=== PATIENT | female | born 1975 | race Caucasian/White ===

== ENCOUNTER → 2017-06-17 19:02 | Observation (INO) ==
[2017-06-17 17:51] LABS: Basophils % 0.2 %; Eosinophils % 0.3 %; Hematocrit 37.4 % (35.3-44.9); Hemoglobin 12.5 g/dL (11.5-15.4); Immature Granulocytes % 0.3 % (0-4); Lymphocytes # 2.3 K/mcL (0.6-4.6); Lymphocytes % 23.4 %; Mean Corpuscular HGB Conc 33.4 g/dL (31.6-35.5); Mean Corpuscular Hemoglobin 31.3 pg (28.0-33.3); Mean Corpuscular Volume 93.5 fL (83.0-100.0); Mean Platelet Volume 11.3 fL (9.4-12.4); Monocytes # 0.8 K/mcL (0.0-1.3); Monocytes % 7.7 %; Neutrophils # 6.8 K/mcL (1.6-8.9); Platelet Count 185 K/mcL (140-400); Red Cell Distribution Width 13.3 % (11.5-14.5); Segmented Neutrophils % 68.1 %
[2017-06-17 17:57] LABS: Bilirubin,Urine Negative (Negative); Blood,Urine Negative (Negative); Clarity,Urine Cloudy (Clear); Color,Urine Yellow (Yellow); Glucose,Urine (UA) Normal (Normal); Ketones,Urine 15 mg/dL (Negative); Leukocyte Esterase,Urine Trace (Negative); Nitrite,Urine Negative (Negative); PH,Urine 6.5 pH Units (5.0-8.0); Protein,Urine Negative (Neg-Trace); Urobilinogen,Urine Normal (Normal)
[2017-06-17 17:59] LABS: Bacteria,Urine Few per hpf (None-Few); Hyaline Casts,Urine None Seen per lpf (None-Few); RBC,Urine 0-3 per hpf (0-3); Squamous Epithelial Cell,Urine Many per lpf (None-Few)
[2017-06-17 18:01] LABS: Amphetamine Screen,Urine Negative ng/mL (Cutoff=1000); Barbiturate Screen,Urine Negative ng/mL (Cutoff=200); Benzodiazepines Screen,Urine Negative ng/mL (Cutoff=200); Cannabinoid Screen,Urine Negative ng/mL (Cutoff = 50); Cocaine Screen,Urine Negative ng/mL (Cutoff= 300); Creatinine,Urine 35 mg/dL; Opiate Screen,Urine Negative ng/mL (Cutoff=300); Phencyclidine Screen,Urine Negative ng/mL (Cutoff=25)
[2017-06-17 18:05] LABS: Alanine Aminotransferase 9 Units/L (0-55); Aspartate Amino Transferase 14 Units/L (5-34); BUN/Creatinine Ratio 8 (6-26); Blood Urea Nitrogen 6 mg/dL (7-20); Lactate Dehydrogenase 160 Units/L (159-327); Uric Acid 4.1 mg/dL (2.6-6.0); eGFR For African Americans > 60 (> 60); eGFR For Non-African Americans > 60 (> 60)
[2017-06-17 18:07] LABS: Protein/Creatinine Ratio,Urine < 0.20 mg/mg (0-0.20)
--- NOTE | 2017-06-17 18:52 | OB/GYN Progress Note ---
Date of Encounter: 06/17/17 Time of Encounter: 18:49 - Assessment and Plan (1) 35 weeks gestation of Current Visit: Yes Status: Acute (2) Elevated blood pressure affecting in third trimester, antepartum Current Visit: Yes Status: Acute Patient with no complaints of PIH symptoms, all lab work is returned within normal limits, blood pressures have resolved last blood pressure 128/86. Pt with contractions, VE 3cm, discussed options of discharge to home or continued monitoring and L&D for 2 hours for cervical change, patient desires discharge home. Discharged to home with pre-eclampsia and labor precautions, pt verbalizes understanding. Labs reviewed with Dr. Vega. (3) NST (non-stress test) reactive Current Visit: Yes Status: Acute Baseline 135 Subjective - Subjective Interval history: 35+5 weeks gestation. Sent to triage following office visit with elevated blood pressures.. Patient reports good movement and denies contractions, vaginal bleeding, or leaking of fluid. Patient also denies headache right upper quadrant pain or visual changes. Patient has been seen in this by maternal medicine, for AMA and placental infarct in previous Antepartum ROS: movement normal, no loss of fluid, no vaginal bleeding, no contractions Objective - Exam FHR: auscultation normal FHR comments: Baseline 135 Auscultation: bilateral: normal Abdomen: Present: normal appearance, soft, gravid Uterus: Present: normal Cervical dilation: 3/50/-3 - Labs Labs: Abnormal lab results BUN 6 mg/dL (7-20) L 06/17/17 17:35 Urine Clarity Cloudy (Clear) A 06/17/17 17:35 Urine Ketones 15 mg/dL (Negative) H 06/17/17 17:35 Ur Leukocyte Esterase Trace (Negative) H 06/17/17 17:35 Urine Microscopic WBC 3-5 per hpf (0-3) H 06/17/17 17:35 Ur Squamous Epith Cells Many per lpf (None-Few) H 06/17/17 17:35 Ur Culture Indicated? YES (NO) A 06/17/17 17:35
== END | disposition home or self-care (01) ==
LOC: 1NENULAB
PROVIDERS: ADMIT Obstetrics & Gynecology; ATTEND Obstetrics & Gynecology

== ENCOUNTER 2017-07-01 11:54 | Inpatient (IN) ==
[2017-07-01 12:29] LABS: Basophils % 0.2 %; Eosinophils % 0.3 %; Hemoglobin 13.3 g/dL (11.5-15.4); Immature Granulocytes % 0.3 % (0-4); Immature Platelets 8.7 % (1.1-6.1); Lymphocytes # 2.1 K/mcL (0.6-4.6); Lymphocytes % 23.8 %; Mean Corpuscular HGB Conc 33.3 g/dL (31.6-35.5); Mean Corpuscular Hemoglobin 30.8 pg (28.0-33.3); Mean Corpuscular Volume 92.6 fL (83.0-100.0); Mean Platelet Volume 11.2 fL (9.4-12.4); Monocytes # 0.6 K/mcL (0.0-1.3); Monocytes % 7.4 %; Neutrophils # 5.9 K/mcL (1.6-8.9); Platelet Count 191 K/mcL (140-400); Red Blood Count 4.32 M/mcL (3.82-4.97); Red Cell Distribution Width 13.2 % (11.5-14.5)
[2017-07-01 12:42] LABS: Alanine Aminotransferase 10 Units/L (0-55); Aspartate Amino Transferase 13 Units/L (5-34); BUN/Creatinine Ratio 8 (6-26); Blood Urea Nitrogen 6 mg/dL (7-20); Lactate Dehydrogenase 185 Units/L (159-327); Uric Acid 4.7 mg/dL (2.6-6.0); eGFR For African Americans > 60 (> 60); eGFR For Non-African Americans > 60 (> 60)
[2017-07-01 13:12] LABS: Creatinine,Urine 37 mg/dL; Protein/Creatinine Ratio,Urine < 0.19 mg/mg (0-0.20)
[2017-07-01] MEDS ORDERED: Famotidine 20 MG/2 ML VIAL IVP PRN (13:17)
[2017-07-01] MEDS ORDERED: Naloxone 0.4 MG/ML INJ IVP PRN (13:17)
[2017-07-01] MEDS ORDERED: Ondansetron 4 MG/2 ML VIAL IVP PRN (13:17)
[2017-07-01] MEDS ORDERED: miSOPROStol 25 MCG TABLET PO PRN (13:21)
[2017-07-01 13:44] LABS: Amphetamine Screen,Urine Negative ng/mL (Cutoff=1000); Barbiturate Screen,Urine Negative ng/mL (Cutoff=200); Benzodiazepines Screen,Urine Negative ng/mL (Cutoff=200); Cannabinoid Screen,Urine Negative ng/mL (Cutoff = 50); Cocaine Screen,Urine Negative ng/mL (Cutoff= 300); Opiate Screen,Urine Negative ng/mL (Cutoff=300); Phencyclidine Screen,Urine Negative ng/mL (Cutoff=25)
--- NOTE | 2017-07-01 14:13 | OB/GYN History & Physical ---
Date of Encounter: 07/01/17 Time of Encounter: 14:11 Assessment and Plan (1) 37 weeks gestation of Current visit: Yes Status: Acute (2) Gestational hypertension w/o significant proteinuria in 3rd trimester Current visit: Yes Status: Acute Admit to labor and delivery or gestational hypertension with continued elevated diastolics greater than 90 Induction of labor with Cytotec Nubain and epidural as desired GBS negative Anticipate Plan of care discussed with Dr. High (3) AMA (advanced maternal age) multigravida 35+ Current visit: Yes Status: Acute Qualifiers: Trimester: third trimester Qualified Code(s): O09.523 - Supervision of elderly multigravida, third trimester (4) MTHFR deficiency complicating Current visit: Yes Status: Acute Pt on ASA during last dose yesterday Qualifiers: Trimester: third trimester Qualified Code(s): O99.283 - Endocrine, nutritional and metabolic diseases complicating , third trimester; E72.12 - Methylenetetrahydrofolate reductase deficiency (5) GDM, class A1 Current visit: Yes Status: Acute History of Present Illness Chief complaint: elevated BP HPI: Ms. Pitts is a 42 year old female at 37+5 weeks gestation presents to labor and delivery triage from office for evaluation of elevated blood pressures patient. Patient reports good movement, denies vaginal bleeding , contractions, leaking fluid, visual changes, right upper quadrant pain, or headache. complicated with advanced maternal age, gestational diabetes A1, elevated blood pressures in , MTHFR deficiency. Labs: O+, rubella and varicella immune, GBS negative, all other serologies negative Past Med Surg Social Fam HX - Past Medical History Source: patient Medical history: other Psychiatric history: no psych history - Past Surgical History Surgical History: no surgical history - Social History Smoking Status: Former smoker Smokeless Tobacco Status: No Alcohol use: none Drug use: none - Family History Father Adopted: [place]: Goldy Barksdale Living Status: Still Living Hx Family Cardiac Disorders: Yes (OK, arrthymia, cardiac ablation) Hx Family Respiratory Disorders: No Hx Family Cancer: No Hx Family GI Disorders: No Hx Family Genitourinary Disorders: No Hx Family Endocrine Disorder: No Hx Family Musculoskeletal Disorders: No Hx Family Neuromuscular Disorders: No Hx Family Neurologic Disorders: No Hx Family HEENT Disorders: No Hx Family Autoimmune Disorders: No Hx Family Reproductive Disorders: No Hx Family Psychosocial Disorders: No Hx Family Medical Disorders: No Obstetrical History - Pregnancies : 2 Para: 1 Term: 1 : 0 Ab's: 0 Livin Medications and Allergies Aspirin 81 mg PO 07/01/17 [History] Claritin 07/01/17 [History] Flonase 07/01/17 [History] Formula Tablet 07/01/17 [History] 3 Allergy/AdvReac Type Severity Reaction Status Date / Time No Known Allergies Allergy Verified 06/17/17 17:31 Exam - Constitutional Constitutional: well developed, well nourished, no acute distress, average body habitus - Neck Neck exam: full ROM - Lungs Respiratory exam: CTAB - Cardiovascular Cardiovascular exam: RRR - Abdomen Abdomen: Present: bowel sounds normal, gravid, non tender - Extremities Extremities exam: normal capillary refill, normal inspection - Vagina Vagina: Present: normal moisture - Cervix Dilation: 3 (Per Lennox ) Effacement: 80 - Uterus Uterus exam: Present: normal size, normal contour Results Result Diagrams: 07/01/17 12:15 07/01/17 12:15 Abnormal lab results Immature Plt Fraction 8.7 % (1.1-6.1) H 07/01/17 12:15 BUN 6 mg/dL (7-20) L 07/01/17 12:15 All other labs normal. - VTE Reasons for not Prescribing Prophylaxis: Treatment not Indicated - Low risk for VTE
--- NOTE | 2017-07-01 14:52 | Anesthesia Evaluation PreOp ---
Date of Encounter: 07/01/17 Time of Encounter: 14:50 - Past History Planned Operation: kameron Cardiac History: HTN (pih) Pulmonary History: Denies Any Significant HX SENIOR ELECTRONICS ENGINEER History: Denies Any Significant HX Other Medical History: Denies Any Significant HX, Diabetes Type II (gestational) , Other (mthfr) Anesthesia History: No Prior Anesthetic Complications, Past Anesthesia : Yes (, 37 plus 5) Alcohol Use: none Drug use: none Medications and Allergies Aspirin 81 mg PO 07/01/17 [History] Claritin 07/01/17 [History] Flonase 07/01/17 [History] Formula Tablet 07/01/17 [History] 3 Allergy/AdvReac Type Severity Reaction Status Date / Time No Known Allergies Allergy Verified 06/17/17 17:31 - Meds/Allergy Pre-op Review Medications Reviewed: Yes Allergies Reviewed: Yes Beta Blockers on Current Med List: No Anesthesia Results - Labs 07/01/17 12:15 07/01/17 12:15 Anesthesia Exam O2 Sat Height 1.63 m Height 1.63 m Weight 91 kg Weight 91 kg bp 143/92 Height: 64 Weight: 91 - HEENT Pupil (Motor): Pupils equal Mallampati: II Teeth: Prosthesis (#8,9 implants) Oral Opening: Greater than 3 - SENIOR ELECTRONICS ENGINEER LOC: Oriented SENIOR ELECTRONICS ENGINEER Motor: Normal RUE, Normal LUE, Normal RLE, Normal LLE, Normal Face SENIOR ELECTRONICS ENGINEER Sensory: Normal: RUE, LUE, RLE, LLE, Face - Cardiac Rhythm: Regular Murmur: None JVD: No Carotid Bruit: No - Pulmonary Breath Sounds: bilateral Clear Respiratory Effort: Symmetrical Anesthesia Assess/Plan ASA Score: 2 Modified Yandy Scale for Level of Consciousness: Cooperative, oriented, and tranquil Anesthetic Plan: Regional Monitoring Plan: Standard Monitors
[2017-07-01] MEDS ORDERED: Oxytocin 20 units/ LR 1000 mL 20 UNIT/1,000 ML BAG IVC SCH (19:30)
--- NOTE | 2017-07-01 19:39 | OB Labor Progress Note ---
Date of Encounter: 07/01/17 Time of Encounter: 19:32 Labor Progress Note - Subjective Subjective: Pt states she is feeling contractions, they are slowly getting stronger - Vital Signs Vital Signs: Last bp 134/87 - Cervix Cervix: 4/80/-2 per GIO Knowles - Heart Tones Heart Tones: 120/moderate/+accels/-decels - [place]: 2-5 - Plan Plan: Start pitocin per policy Nubain and Epidural as desired Anticipate
[2017-07-01] MEDS ORDERED: Ringers Solution, Lactated 1,000 ML ONE ×2 (20:00→20:58)
[2017-07-01] MEDS ORDERED: Epidural Premix (fent/bupiv) 110 ML EP ONE (20:15)
[2017-07-01] MEDS ORDERED: *HR* FentaNYL (PF) 100 MCG/2 ML VIAL ONE (20:27)
[2017-07-01] MEDS ORDERED: *HR* Ropivacaine/PF 0.2% 10 ML AMPUL ONE (20:28)
--- NOTE | 2017-07-01 20:55 | Anesthesia Procedures ---
Date of Encounter: 07/01/17 Time of Encounter: 20:53 Procedures: Anesthesia - Epidural/Spinal Patient ID/Chart reviewed: Yes Patient examined: Yes OB Eval: Gestational age: 37 OB Eval: : 2 OB Eval: Hx Para: 1 OB Eval: Dilated at (cm): 4 OB Eval: Contractions: Non-stressed pattern Consent Obtained: Yes Supplemental Oxygen: None/Room Air Site Prep: Aseptic Technique Patient position: upright Local Anesthetic: Lidocaine 1% Amount of Local Anesthetic used: 3 Touhy Needle Gauge: 18 Touhy Needle Depth (cm): 5 Catheter Depth at Skin (cm): 12 Test Dose (1.5% Lido + Epi): Volume given (mls): 3 Test Dose Result: Negative Loading Dose: Fentanyl (mcg): 10 Loading Dose: Other: 0.2% ropivicaine 6ml Loading Dose Administered: Thru Touhy Needle Infusion Med: 0.125% Bupivacaine w/ 2 mcg/ml Fentanyl Infusion Rate (mls/hr): [address]: Tegaderm Interspace Used: L3-L4 Loss of Resistance (THEO): Yes Blood: No CSF: No Paresthesia: No
--- NOTE | 2017-07-01 23:00 | OB Labor Progress Note ---
Date of Encounter: 07/01/17 Time of Encounter: 22:57 Labor Progress Note - Subjective Subjective: Patient comfortable after epidural - Vital Signs Vital Signs: BP 110's/70's - Cervix Cervix: 4.5/75/-3 ballotable vertex with fingers - Heart Tones Heart Tones: category 1, baseline 120 - [place]: irregular contractions. - Interventions Interventions: Hernandez catheter assist RN to place in patient's bladder - Plan Plan: Continue pitocin IV to bring down vertex
--- NOTE | 2017-07-02 00:13 | OB Labor Progress Note ---
Date of Encounter: 07/02/17 Time of Encounter: 00:12 Labor Progress Note - Subjective Subjective: Patient still comfortable and without complaints. - Cervix Cervix: 6/75/-2 vertex - Heart Tones Heart Tones: 110's, category 1 - [place]: q3 minutes with pitocin at 12 mUnits/min - Interventions Interventions: AROM with moderate amount of clear fluid - Plan Plan: Continue pitocin induction with EFM and anticipation of vaginal delivery
[2017-07-02] MEDS ORDERED: Famotidine 20 MG/2 ML VIAL IVP PRN (00:15)
[2017-07-02] MEDS ORDERED: Ringers Solution, Lactated 1,000 ML ONE (02:09)
--- NOTE | 2017-07-02 05:38 | OB/GYN Procedure Note ---
Delivery - Delivery Date: 07/02/17 Provider: Allegra High Intrapartum events: none Delivery induction: AROM, oxytocin, misoprostol Delivery monitor: external FHT, external uterine, internal FHT Anesthesia: epidural Estimated Blood Loss: 400 - (s) Infant A Infant Delivery Date: 07/02/17 Infant Delivery Time: 05:02 Presentation: vertex Position: DARÍO Route of delivery: Gender: Female Viability: Viable Pounds: 6 Ounces: 11 at 1 minute: 8 at 5 mins: 9 Shoulder Dystocia: not encountered Specimens collected: cord blood Placenta: spontaneous Cord: nuchal cord, 3 umbilical vessels, delivered through nuchal - Repair Episiotomy: none Laceration Description: Perineal - 2nd Degree - Complications Delivery complications: none Delivery comments: Called to room with patient complete and +1 station. Variable decelerations noted with contractions. With maternal effort she delivered a viable female nenonate over a second degree perineal laceration. Following delivery of the head the infant was bulb suctioned. Nuchal cord times one which she delivered through. There was no shoulder dystocia encountered. Body of delivered with maternal effort. Infant was placed on mom's abdomen. Cord was clamped and cut. The distal end of cord was cleansed with alcohol and cord blood was collected with their personal banking collection kit. Second degree perineal laceration was repaired using 3-0 Vicryl in standard fashion. Placenta delivered spontaneously, complete, and intact with 3 vessel cord. Mother and are recovering in LDR in stable condition. - Disposition Mom disposition: stable in LDR disposition: stable in LDR
[2017-07-02] MEDS ORDERED: Acetaminophen 325 MG TABLET PO PRN (07:21)
[2017-07-02] MEDS ORDERED: Oxytocin 20 units/ LR 1000 mL 20 UNIT/1,000 ML BAG IVC SCH (07:21)
[2017-07-02] MEDS: Ibuprofen 600 MG TABLET PO PRN ×2 (09:35→21:07)
[2017-07-02] MEDS: Prenatal Vit/FA 1 EACH TABLET PO SCH (09:35)
[2017-07-03] MEDS: Ibuprofen 600 MG TABLET PO PRN (04:04)
[2017-07-03] MEDS: Prenatal Vit/FA 1 EACH TABLET PO SCH (07:59)
[2017-07-03 09:44] VITALS: BP 106/73
--- NOTE | 2017-07-03 09:48 | Discharge Summary ---
Date of Encounter: 07/03/17 Time of Encounter: 09:44 - Discharge Diagnosis (1) Vaginal delivery Priority: Primary Status: Acute Comments: Patient doing well s/p vaginal delivery day 1 Pain is well controlled Lochia is light and without clots Voiding and passing flatus without difficulty is going well; patient has a pump Discharge home today - Discharge Medications Home Medications: Aspirin 81 mg PO 07/01/17 [History] Claritin 07/01/17 [History] Flonase 07/01/17 [History] Formula Tablet 07/01/17 [History] Docusate [Colace] 100 mg PO BID PRN capsule 07/03/17 [Rx] Ferrous Sulfate 325 mg PO DAILY tablet 07/03/17 [Rx] Ibuprofen [Motrin] 600 mg PO Q6HR PRN tablet 07/03/17 [Rx] Allergies/Adverse Reactions: 3 Allergy/AdvReac Type Severity Reaction Status Date / Time No Known Allergies Allergy Verified 06/17/17 17:31 Data Procedures and tests throughout hospitalization: Laboratory Tests 07/01/17 07/01/17 07/01/17 12:15 12:15 12:15 WBC 8.7 RBC 4.32 Hgb 13.3 Hct 40.0 MCV 92.6 MCH 30.8 MCHC 33.3 RDW 13.2 Plt Count 191 MPV 11.2 Immature Gran % 0.3 Seg Neutrophils % 68.0 Lymphocytes % 23.8 Monocytes % 7.4 Eosinophils % 0.3 Basophils % 0.2 Neutrophils # 5.9 Lymphocytes # 2.1 Monocytes # 0.6 Eosinophils # 0.0 Basophils # 0.0 Immature Plt Fraction 8.7 H BUN 6 L Creatinine 0.76 Est GFR ( Amer) > 60 Est GFR (Non-Af Amer) > 60 BUN/Creatinine Ratio 8 Uric Acid 4.7 AST 13 ALT 10 Lactate Dehydrogenase 185 Urine Creatinine Protein/Creatinin Ratio Urine Total Protein Urine Opiates Screen Negative Ur Barbiturates Screen Negative Ur Phencyclidine Scrn Negative Ur Amphetamines Screen Negative U Benzodiazepines Scrn Negative Urine Cocaine Screen Negative U Marijuana (THC) Screen Negative 07/01/17 12:15 WBC RBC Hgb Hct MCV MCH MCHC RDW Plt Count MPV Immature Gran % Seg Neutrophils % Lymphocytes % Monocytes % Eosinophils % Basophils % Neutrophils # Lymphocytes # Monocytes # Eosinophils # Basophils # Immature Plt Fraction BUN Creatinine Est GFR ( Amer) Est GFR (Non-Af Amer) BUN/Creatinine Ratio Uric Acid AST ALT Lactate Dehydrogenase Urine Creatinine 37 Protein/Creatinin Ratio < 0.19 Urine Total Protein < 7 Urine Opiates Screen Ur Barbiturates Screen Ur Phencyclidine Scrn Ur Amphetamines Screen U Benzodiazepines Scrn Urine Cocaine Screen U Marijuana (THC) Screen Date of admission: 07/01/17 11:54 Primary care physician: PCP NONE Consults: 07/02/17 07:21 Consult to Educational Adviser [CONS] Routine Comment: Vaginal delivery, consult needed Discharging clinician: Tara Cook Anticipated date of discharge: 07/03/17 - Patient Status Disposition: Home, Self-Care Condition: Good Functional capacity at discharge: independent ambulation Overall status at discharge: patient is progressing back to baseline - Discharge Instructions Follow Up With: NONE,PCP [Primary Care Provider] - Allegra High DO [Partnered Physician] - - Diet and Activity Activity: increase activity as tolerated Diet: regular diet Hospital Course Reason for admission: active labor, IUP at term Delivery: Episiotomy: none Laceration: 2nd degree Other procedures: none complications: none Discharge diagnosis: IUP at term delivered Louann baby: female Time Attestation: Total time spent providing and/or coordinating discharge services: Time Spent: Less than 30 minutes Exam - Constitutional Vitals: Temp Pulse Resp BP Pulse Ox 98.2 F 86 16 106/73 97 07/03/17 07:35 07/03/17 07:35 07/03/17 07:35 07/03/17 07:35 07/03/17 07:35 General appearance IM: cooperative, A&O X 3, pleasant - Cardiovascular Cardiovascular exam IM: Present: RRR, +S1, +S2 - GI/Abdominal GI/Abdominal exam IM: normal bowel sounds, soft - Rectal Rectal exam: deferred - Uterine Tone: Firm Uterus Position: At Umbilicus, Midline - Extremities Exam Extremities exam IM: Present: normal capillary refill, normal inspection, radial pulses palpable and symmetrical - Neurological Exam Neurological exam: alert
== END 2017-07-03 13:13 | disposition home or self-care (01) | DRG 775 ==
LOC: 1NENULAB → OBSVTOIN 11:54 → 1NENULAB 17:55 → 1NENUOBS 07-02 09:03
PROVIDERS: ADMIT Advanced Practice Midwife; ATTEND Obstetrics & Gynecology